=== PATIENT | female | born 1985 | race Asian ===

== ENCOUNTER 2016-11-20 17:26 | Emergency (ER) | payer SELFPAY ==
[~2016-11-20] VITALS: Ht 157.5 cm; Wt 50.0 kg
[2016-11-20] MEDS ORDERED: KETOROLAC 60MG/2ML VIAL IM ONE (21:15)
[2016-11-20 22:00] VITALS: BP 140/89
[2016-11-20 22:37] LABS: CLARITY URINE CLEAR (CLEAR); COLOR URINE YELLOW (YELLOW); GLUCOSE URINE NEGATIVE (NEGATIVE); KETONES URINE NEGATIVE (NEGATIVE); LEUKOCYTE ESTERASE URINE TRACE (NEGATIVE); NITRITE URINE NEGATIVE (NEGATIVE); OCCULT BLOOD URINE NEGATIVE (NEGATIVE); PH URINE 6.5 (4.5-8.0); PROTEIN URINE NEGATIVE (NEGATIVE); SPECIFIC GRAVITY URINE 1.008 (1.005-1.030); UROBILINOGEN URINE 0.2 E.U./dL (0.2-1.0)
== END 2016-11-20 23:50 | disposition home or self-care (01) ==
LOC: ER 20:42
DX: M54.9 Dorsalgia, unspecified (principal); G43.909 Migraine, unspecified, not intractable, without status migrainosus; X58.XXXA Exposure to other specified factors, initial encounter; Y93.F9 Activity, other caregiving; Y92.89 Other specified places as the place of occurrence of the external cause; Y99.8 Other external cause status
CPT/HCPCS: 81001; 81025; 96372; 99283; J1885; Z7610

== ENCOUNTER 2016-12-12 12:18 | Emergency (ER) | payer SELFPAY ==
[~2016-12-12] VITALS: Ht 157.5 cm; Wt 50.0 kg
[~2016-12-12 12:18] MED LIST: IOHEXOL-350 100 ML BOTTLE ONE; SODIUM CHLORIDE 0.9% 10ML VIAL ONE
[2016-12-12] MEDS ORDERED: SODIUM CHLORIDE 0.9% 1,000 ML IV ONE (13:16)
[2016-12-12] MEDS ORDERED: ONDANSETRON HCL 4MG/2ML VIAL IV STA (13:16)
[2016-12-12] MEDS ORDERED: MORPHINE SULFATE 4 MG/ML CPJ (NOT FOR IM USE) IV STA (13:16)
[2016-12-12 13:59] LABS: BASOPHILS % 0.5 % (0.0-2.0); EOSINOPHILS % 0.6 % (0.0-5.0); HEMATOCRIT. 37.1 % (36.0-48.0); HEMOGLOBIN. 12.1 g/dL (12.0-16.0); LYMPHOCYTES % 27.8 % (20.0-50.0); MEAN CORPUSCULAR HEMOGLOBIN 25.6 pg (28.0-32.0); MEAN CORPUSCULAR VOLUME 78.4 fL (81.0-99.0); MEAN PLATELET VOLUME 9.2 fl (7.4-10.4); MONOCYTES % 6.6 % (2.0-8.0); NEUTROPHILS % 64.5 % (40.0-76.0); PLATELET 208 x1000/uL (130-400); RED BLOOD CELL COUNT 4.73 mill/uL (4.2-5.4); RED CELL DISTRIBUTION WIDTH 13.7 % (11.6-14.6)
[2016-12-12 14:05] LABS: PROTHROMBIN TIME 10.6 sec
[2016-12-12 14:09] LABS: CARBON DIOXIDE 29 mEq/L (21-32); CHLORIDE 105 mEq/L (98-107)
[2016-12-12 14:15] LABS: TROPONIN I < 0.02 ng/mL (0.00-0.04)
[2016-12-12 14:33] LABS: HCG SCREEN NEGATIVE
[2016-12-12] MEDS ORDERED: POTASSIUM CHLORIDE INJ 40 MEQ in DEXT 5% WATER 250 ML IV NR (16:30)
[2016-12-12] MEDS ORDERED: POTASSIUM CHLORIDE 20MEQ TABLET SR PO NR (16:30)
[2016-12-12 22:28] VITALS: BP 120/79
== END 2016-12-12 22:27 | disposition home or self-care (01) ==
LOC: ER 13:10
DX: R00.0 Tachycardia, unspecified (principal); R07.89 Other chest pain
CPT/HCPCS: 36415; 71010; 71275; 80053; 83880; 84484; 84703; 85025; 85610; 93005; 96361; 96365; 96366; 99285; A4216; J3480; J7030; J7040; Q9967; Z7610; J7060

== ENCOUNTER 2018-05-25 09:24 | Emergency (ER) | payer OTHER, MEDICAID ==
[~2018-05-25] VITALS: Ht 157.5 cm; Wt 50.0 kg
[2018-05-25 10:44] LABS: CLARITY URINE CLEAR (CLEAR); COLOR URINE YELLOW (YELLOW); KETONES URINE NEGATIVE (NEGATIVE); LEUKOCYTE ESTERASE URINE 1+ (NEGATIVE); NITRITE URINE NEGATIVE (NEGATIVE); OCCULT BLOOD URINE NEGATIVE (NEGATIVE); PROTEIN URINE NEGATIVE (NEGATIVE); SPECIFIC GRAVITY URINE 1.014 (1.005-1.030); UROBILINOGEN URINE 0.2 E.U./dL (0.2-1.0)
[2018-05-25] MEDS ORDERED: SODIUM CHLORIDE 0.9% 1,000 ML IV ONE (11:15)
[2018-05-25 11:48] LABS: BASOPHILS % 0.9 % (0.0-2.0); EOSINOPHILS % 0.6 % (0.0-5.0); HEMATOCRIT. 38.8 % (36.0-48.0); HEMOGLOBIN. 12.7 g/dL (12.0-16.0); LYMPHOCYTES % 21.8 % (20.0-50.0); MEAN CORPUSCULAR HEMOGLOBIN 25.8 pg (28.0-32.0); MEAN CORPUSCULAR VOLUME 78.8 fL (81.0-99.0); MEAN PLATELET VOLUME 9.3 fl (7.4-10.4); MONOCYTES % 5.9 % (2.0-8.0); NEUTROPHILS % 70.8 % (40.0-76.0); PLATELET 234 x1000/uL (130-400); RED BLOOD CELL COUNT 4.93 mill/uL (4.2-5.4); RED CELL DISTRIBUTION WIDTH 14.3 % (11.6-14.6)
[2018-05-25 11:54] LABS: CHLORIDE 107 mEq/L (98-107)
[2018-05-25 13:16] LABS: METHADONE URINE SCREEN NEGATIVE (NEGATIVE); OPIATES URINE SCREEN NEGATIVE (NEGATIVE)
[2018-05-25 13:17] LABS: *AMPHETAMINES SCREEN URINE NEGATIVE (NEGATIVE); *BARBITURATES SCREEN URINE NEGATIVE (NEGATIVE); *BENZODIAZEPINES SCREEN URINE NEGATIVE (NEGATIVE); *COCAINE SCREEN URINE NEGATIVE (NEGATIVE); CANNABINOID URINE SCREEN NEGATIVE (NEGATIVE); PHENCYCLIDINE URINE SCREEN NEGATIVE (NEGATIVE)
[2018-05-25 13:58] VITALS: BP 131/85
[2018-05-25] MEDS ORDERED: IBUPROFEN 600MG TABLET PO ONE (14:00)
== END 2018-05-25 14:27 | disposition home or self-care (01) ==
LOC: ER 09:32
DX: R51 Headache (principal); R42 Dizziness and giddiness; R11.0 Nausea; F41.9 Anxiety disorder, unspecified
CPT/HCPCS: 36415; 70450; 80053; 80305; 81003; 81025; 85025; 93005; 96360; 96361; 99284; J7030

== ENCOUNTER 2018-07-31 19:02 | Emergency (ER) | payer MEDICAID, OTHER ==
[~2018-07-31] VITALS: Ht 167.6 cm; Wt 54.4 kg
[2018-07-31] MEDS ORDERED: KETOROLAC 30MG/ML VIAL IV STA (19:31)
[2018-07-31] MEDS ORDERED: SODIUM CHLORIDE 0.9% 1,000 ML IV ONE (19:31)
[2018-07-31] MEDS ORDERED: LORAZEPAM 1MG TABLET PO ONE (19:45)
[2018-07-31 20:12] LABS: BASOPHILS % 0.6 % (0.0-2.0); EOSINOPHILS % 0.9 % (0.0-5.0); HEMATOCRIT. 32.7 % (36.0-48.0); HEMOGLOBIN. 10.4 g/dL (12.0-16.0); LYMPHOCYTES % 27.6 % (20.0-50.0); MEAN CORPUSCULAR HEMOGLOBIN 25.3 pg (28.0-32.0); MEAN CORPUSCULAR VOLUME 79.2 fL (81.0-99.0); MEAN PLATELET VOLUME 8.7 fl (7.4-10.4); MONOCYTES % 9.1 % (2.0-8.0); NEUTROPHILS % 61.8 % (40.0-76.0); PLATELET 193 x1000/uL (130-400); RED BLOOD CELL COUNT 4.12 mill/uL (4.2-5.4); RED CELL DISTRIBUTION WIDTH 13.9 % (11.6-14.6)
[2018-07-31 20:15] LABS: CLARITY URINE CLEAR (CLEAR); COLOR URINE YELLOW (YELLOW); KETONES URINE NEGATIVE (NEGATIVE); LEUKOCYTE ESTERASE URINE TRACE (NEGATIVE); NITRITE URINE NEGATIVE (NEGATIVE); OCCULT BLOOD URINE NEGATIVE (NEGATIVE); PH URINE 6.5 (4.5-8.0); PROTEIN URINE NEGATIVE (NEGATIVE); SPECIFIC GRAVITY URINE 1.009 (1.005-1.030); UROBILINOGEN URINE 0.2 E.U./dL (0.2-1.0)
[2018-07-31 20:18] LABS: CHLORIDE 108 mEq/L (98-107)
[2018-07-31] MEDS ORDERED: IOHEXOL-350 100 ML BOTTLE ONE (21:36)
[2018-07-31 22:24] VITALS: BP 115/87
== END 2018-07-31 22:28 | disposition home or self-care (01) ==
LOC: ER 19:02
DX: R00.2 Palpitations (principal); R07.89 Other chest pain; F41.9 Anxiety disorder, unspecified
CPT/HCPCS: 36415; 71045; 71275; 80053; 81003; 81025; 84484; 85025; 85379; 93005; 96374; 99284; J1885; J7030; Q9967

== ENCOUNTER 2018-09-28 22:07 | Emergency (ER) | payer OTHER ==
[~2018-09-28] VITALS: Ht 157.5 cm; Wt 52.0 kg
[2018-09-29] MEDS ORDERED: GUAIFENESIN-DM 200MG-20MG/10ML UDC PO ONE (03:45)
[2018-09-29 03:57] VITALS: BP 132/86
== END 2018-09-29 03:58 | disposition home or self-care (01) ==
LOC: ER 22:07
DX: R05 Cough (principal)
CPT/HCPCS: 71045; 81025; 99283

== ENCOUNTER 2022-07-02 14:55 | Emergency (ER) | payer OTHER ==
[~2022-07-02] VITALS: Ht 165.1 cm; Wt 50.0 kg
[2022-07-02] MEDS ORDERED: ACETAMINOPHEN 325MG TABLET PO STA (15:25)
[2022-07-02] MEDS ORDERED: METOCLOPRAMIDE HCL 10MG/2ML VIAL IV ONE (15:30)
[2022-07-02] MEDS ORDERED: SODIUM CHLORIDE 0.9% 1,000 ML IV ONE (15:30)
[2022-07-02] MEDS ORDERED: DIPHENHYDRAMINE 50MG/ML VIAL IV ONE (15:30)
[2022-07-02 15:51] LABS: BASOPHILS % 0.7 % (0.0-2.0); EOSINOPHILS % 0.7 % (0.0-5.0); HEMATOCRIT. 37.6 % (36.0-48.0); HEMOGLOBIN. 12.5 g/dL (12.0-16.0); LYMPHOCYTES % 23.9 % (20.0-50.0); MEAN CORPUSCULAR HEMOGLOBIN 26.7 pg (28.0-32.0); MEAN CORPUSCULAR VOLUME 80.2 fL (81.0-99.0); MONOCYTES % 7.1 % (2.0-8.0); NEUTROPHILS % 67.6 % (40.0-76.0); PLATELET 211 x1000/uL (130-400); RED BLOOD CELL COUNT 4.69 mill/uL (4.2-5.4); RED CELL DISTRIBUTION WIDTH 13.3 % (11.6-14.6)
[2022-07-02 15:59] LABS: CHLORIDE 102 mEq/L (98-107)
[2022-07-02 16:05] LABS: PROTHROMBIN TIME 10.8 sec (9.6-11.0)
[2022-07-02 16:10] LABS: ETHANOL BLOOD < 10 mg/dL
[2022-07-02 16:12] LABS: HCG SCREEN NEGATIVE
[2022-07-02 16:17] VITALS: BP 141/91
[2022-07-02] MEDS ORDERED: LORAZEPAM 2MG/ML CPJ IV SCH (16:45)
[2022-07-02 17:30] LABS: *AMPHETAMINES SCREEN URINE NEGATIVE (NEGATIVE); *BARBITURATES SCREEN URINE NEGATIVE (NEGATIVE); *BENZODIAZEPINES SCREEN URINE NEGATIVE (NEGATIVE); *COCAINE SCREEN URINE NEGATIVE (NEGATIVE); CANNABINOID URINE SCREEN NEGATIVE (NEGATIVE); METHADONE URINE SCREEN NEGATIVE (NEGATIVE); OPIATES URINE SCREEN NEGATIVE (NEGATIVE); PHENCYCLIDINE URINE SCREEN NEGATIVE (NEGATIVE)
[2022-07-02] MEDS ORDERED: KETOROLAC 15MG/ML VIAL IV ONE ×2 (17:30→19:15)
[2022-07-02] MEDS ORDERED: DEXAMETHASONE 10 MG/ML VIAL IV ONE (17:30)
[2022-07-02] MEDS ORDERED: METO-293 MT (18:44)
[2022-07-02] MEDS ORDERED: ACET-2708 MT (18:44)
== END 2022-07-02 19:21 | disposition home or self-care (01) ==
LOC: ER 15:24
DX: G43.909 Migraine, unspecified, not intractable, without status migrainosus (principal); F41.0 Panic disorder [episodic paroxysmal anxiety]; Z13.9 Encounter for screening, unspecified
CPT/HCPCS: 36415; 70450; 71045; 80053; 80305; 80320; 83605; 83690; 83880; 84484; 84703; 85025; 85610; 93005; 96361; 96374; 96375; 99285; J1885; J2060; J7030; Z7610; J1100; J1200; J2765; G0480

== ENCOUNTER 2023-06-16 12:42 | Emergency (ER) | payer OTHER ==
[~2023-06-16] VITALS: Ht 165.1 cm; Wt 61.0 kg
[~2023-06-16 12:42] MED LIST changes: +ACET-2708 MT; -IOHEXOL-350 100 ML BOTTLE ONE; +METO-293 MT; -SODIUM CHLORIDE 0.9% 10ML VIAL ONE
[2023-06-16 12:45] VITALS: BP 136/78; PULSE 78; RESP 16; TEMP 98.8; O2SAT 100
[2023-06-16] MEDS ORDERED: CYCL10TA21 MT (12:51)
== END 2023-06-16 13:38 | disposition home or self-care (01) ==
LOC: ER 12:42
DX: R51.9 Headache, unspecified (principal)
CPT/HCPCS: 99283